=== PATIENT | female | born 1960 | race Two or more races ===

== ENCOUNTER 2016-09-27 19:59 | Emergency (ER) | payer SELFPAY ==
[2016-09-27 20:19] VITALS: RESP 16
[2016-09-27] MEDS ORDERED: IBUPROFEN 600 MG TAB PO ONE (20:20)
--- NOTE | 2016-09-27 20:46 | EDPHY ---
H & P Time Seen by Provider: 09/27/16 20:02 HPI/ROS: 56 yo F presents c/o concern that she may have a tick on her right hip, she was out walking the dog and suddenly felt a bite and then noticed a black spot on her hip. No fever or chills. Review of systems General no fever no chills no weakness HEENT no eye pain no eye discharge. No eye redness, no sore throat Respiratory no cough, no shortness of breath Cardiac no chest pain, no peripheral edema GI no abdominal pain, no diarrhea, no constipation, no nausea, no vomiting no flank pain, no hematuria, no dysuria Musculoskeletal no myalgias, no joint pain Heme no easy bruising, no easy bleeding Endo no polyuria, no polydipsia Skin no rashes, no pruritus, positive lesion Neuro no syncope, no dizziness, no headaches Psych is no suicidal ideation, no homicidal ideation Past Medical/Surgical History: depression Social History: has a daughter starting college at [employer] this fall alcohol socially, no drugs Smoking Status: Never smoked Physical Exam: 56-year-old female Alert and oriented in no acute distress nontoxic appearance, afebrile Atraumatic normocephalic Neck no JVD Lungs clear to auscultation, no respiratory distress Heart regular rate and rhythm Extremities no cyanosis clubbing edema Right hip-5 mm black papule, feels very firm No evidence of a tick, no bleeding, no purulence Constitutional: Initial Vital Signs Temperature (C) 36.8 C 09/27/16 20:15 Heart Rate 55 L 09/27/16 20:15 Respiratory Rate 16 09/27/16 20:15 Blood Pressure 113/77 09/27/16 20:15 O2 Sat (%) 94 09/27/16 20:15 O2 Delivery Mode Room Air Allergies/Adverse Reactions: No Known Allergies Allergy (Unverified 09/27/16 20:15) Home Medications: Medication Instructions Recorded Wellbutrin 150mg SR (*) 09/27/16 Medical Decision Making ED Course/Re-evaluation: Patient seen and evaluated for black papule that she was concerned might be a tick. Differential diagnosis considered Retained foreign body, take, comedone/black head, nevus Area was anesthetized with 1% lidocaine and black material removed, consistent with either comedone or nevus Plan Advised patient to follow up with primary care physician and/or Dermatology upon her return to [place] Keep wound clean and dry. - Data Points Medications Given: Discontinued Medications Ibuprofen (Motrin) 600 mg PO EDNOW ONE Stop: 09/27/16 20:21 Last Admin: 09/27/16 20:31 Dose: 600 mg Departure - Departure Disposition: Home, Routine, Self-Care Clinical Impression: Blackhead Condition: Good Instructions: Soft Tissue Foreign Body (ED) Additional Instructions: Keep the area clean and dry. Have your primary care or gimp tacker check it upon return to [facility]. Referrals: WOMENS,SPECIALIST [Other] - As per Instructions
[2016-09-27 20:54] VITALS: BP 115/83; PULSE 57; TEMP 98.6; O2SAT 97
== END 2016-09-27 20:50 | disposition home or self-care (01) ==
LOC: CED 19:59
DX: L70.0 Acne vulgaris (principal)